=== PATIENT | female | born 1975 | race Two or more races ===

== ENCOUNTER 2020-04-21 12:30 | Inpatient (IN) | payer OTHER ==
[2020-04-21] MEDS ORDERED: SODIUM CHLORIDE 0.9% 1000 ML INFUS.BAG IV ONE (13:14)
[2020-04-21 13:22] LABS: HCG,QUALITATIVE URINE Negative
[2020-04-21 13:30] LABS: EPITHELIAL CELLS MODERATE /hpf
[2020-04-21] MEDS ORDERED: SODIUM CHLORIDE 1,000 ML IV SCH (14:00)
[2020-04-21 14:03] LABS: ACTIVATED PTT 26.8 SECONDS (25.2-36.5); BASO % 0.7 % (0-2.0); EOS % 0.2 % (0-4.5); HEMOGLOBIN 14.2 GM/dl (10.7-15.3); LYMPH % 22.8 % (8-40); MCH 32.4 pg (25.7-33.7); MCHC 33.9 g/dl (32.0-36.0); MEAN CELL VOLUME 95.7 fl (80-96); MEAN PLT VOLUME 8.7 fl (7.5-11.1); MONO % 4.3 % (3.8-10.2); PLATELET COUNT 282 K/MM3 (134-434); RBC 4.39 M/mm3 (3.60-5.2); RDW 12.1 % (11.6-15.6); WHITE BLOOD COUNT 6.8 K/mm3 (4.0-10.8)
[2020-04-21 14:07] LABS: INR 1.2 (0.82-1.09); PROTHROMBIN TIME (PATIENT) 13.3 SEC (10.2-13.0)
[2020-04-21 14:08] LABS: ALBUMIN 4.3 g/dl (3.4-5.0); BILIRUBIN,TOTAL 0.7 mg/dl (0.2-1); CALCIUM 8.9 mg/dl (8.5-10); CREATININE 0.5 mg/dl (0.55-1.3); MAGNESIUM 1.8 mg/dL (1.8-2.4); POTASSIUM 3.8 mmol/L (3.5-5.1); TOT PROT 6.6 g/dl (6.4-8.2)
[2020-04-21 18:31] VITALS: BMI 20.1
[2020-04-21] MEDS ORDERED: cefTRIAXone SODIUM 1 GM VIAL ONE (18:40)
[2020-04-21] MEDS ORDERED: DEXTROSE 5%-WATER - 50 ML IVPB ONE (18:40)
[2020-04-21] MEDS: CEFTRIAXONE 1 GM in DEXTROSE 5%-WATER - 50 ML IVPB SCH (18:48)
[2020-04-21] MEDS: HEPARIN NA (PORCINE) 5,000 UNITS/ML 1ML VIAL SQ SCH (21:27)
[2020-04-22] MEDS ORDERED: ALPRAZolam 0.25 MG TABLET PO PRN (09:19)
[2020-04-22] MEDS ORDERED: MECLIZINE HCL 12.5 MG TABLET PO PRN (09:19)
[2020-04-22 09:55] LABS: BASO % 3.7 % (0-2.0); EOS % 2.2 % (0-4.5); HEMATOCRIT 37.1 % (32.4-45.2); HEMOGLOBIN 12.2 GM/dl (10.7-15.3); LYMPH % 42.4 % (8-40); MCH 31.8 pg (25.7-33.7); MCHC 32.8 g/dl (32.0-36.0); MEAN CELL VOLUME 96.8 fl (80-96); MEAN PLT VOLUME 9.2 fl (7.5-11.1); MONO % 7.8 % (3.8-10.2); NEUT % 43.9 % (42.8-82.8); PLATELET COUNT 227 K/MM3 (134-434); RBC 3.84 M/mm3 (3.60-5.2); RDW 11.9 % (11.6-15.6); WHITE BLOOD COUNT 4.9 K/mm3 (4.0-10.8)
[2020-04-22 10:10] LABS: ALBUMIN 3.4 g/dl (3.4-5.0); BILIRUBIN,TOTAL 0.4 mg/dl (0.2-1); CALCIUM 8.5 mg/dl (8.5-10); CREATININE 0.5 mg/dl (0.55-1.3); MAGNESIUM 1.8 mg/dL (1.8-2.4); POTASSIUM 4.7 mmol/L (3.5-5.1); TOT PROT 5.8 g/dl (6.4-8.2)
[2020-04-22] MEDS ORDERED: cefTRIAXone SODIUM 1 GM VIAL ONE (10:49)
[2020-04-22] MEDS ORDERED: DEXTROSE 5%-WATER - 50 ML IVPB ONE (10:50)
[2020-04-22] MEDS: HEPARIN NA (PORCINE) 5,000 UNITS/ML 1ML VIAL SQ SCH ×2 (11:00→21:47)
[2020-04-22] MEDS: CEFTRIAXONE 1 GM in DEXTROSE 5%-WATER - 50 ML IVPB SCH (11:00)
[2020-04-22] MEDS: amLODIPine BESYLATE 5 MG TABLET (FP) PO SCH (11:00)
[2020-04-23] MEDS ORDERED: ALPRAZolam 0.25 MG TABLET PO PRN (02:08)
[2020-04-23] MEDS ORDERED: cefTRIAXone SODIUM 1 GM VIAL ONE (12:26)
[2020-04-23] MEDS ORDERED: DEXTROSE 5%-WATER - 50 ML IVPB ONE (12:27)
[2020-04-23] MEDS: HEPARIN NA (PORCINE) 5,000 UNITS/ML 1ML VIAL SQ SCH (12:31)
[2020-04-23] MEDS: amLODIPine BESYLATE 5 MG TABLET (FP) PO SCH (12:31)
[2020-04-23] MEDS: CEFTRIAXONE 1 GM in DEXTROSE 5%-WATER - 50 ML IVPB SCH (12:31)
[2020-04-23 14:00] VITALS: BP 118/76; PULSE 69; TEMP 98.1
== END 2020-04-23 14:44 | disposition home or self-care (01) | DRG 204 ==
LOC: FER 12:30 → FM/S 13:14
PROVIDERS: ADMIT Internal Medicine; ATTEND Nurse Practitioner Acute Care
DX: R55 Syncope and collapse (principal); I10 Essential (primary) hypertension; N39.0 Urinary tract infection, site not specified
CPT/HCPCS: 36415; 70551-TC; 71045-TC-FY; 80053; 81003; 81015; 82550; 83735; 84443; 84484; 84703; 85025; 85610; 85730; 86850; 86900; 86901; 87086; 93005; 99285-25; C9803; J1644; U0003

== ENCOUNTER 2023-03-08 10:59 | Inpatient (IN) | payer BC, OTHER ==
[2023-03-08] MEDS ORDERED: GLUCAGON 1 MG KIT ONE (11:18)
[2023-03-08] MEDS ORDERED: GlUCAGON HUMAN RECOMBINANT 1 MG/VIAL IVPUSH ONE (11:20)
[2023-03-08 11:50] LABS: VENOUS O2 SATURATION 95.5 % (70-80); VENOUS PCO2 35.5 mmHg (38-52); VENOUS PH 7.395 (7.310-7.410)
[2023-03-08 11:54] LABS: EOS % 1.2 % (0-4.5); HEMATOCRIT 36.6 % (32.4-45.2); HEMOGLOBIN 12.5 GM/dL (10.7-15.3); LYMPH % 39.2 % (8-40); MCH 32.3 pg (25.7-33.7); MCHC 34.2 g/dl (32.0-36.0); MEAN CELL VOLUME 94.6 fl (80-96); MEAN PLT VOLUME 9.1 fl (7.5-11.1); MONO % 8.5 % (3.8-10.2); NEUT % 50.1 % (42.8-82.8); PLATELET COUNT 267 10^3/uL (134-434); RBC 3.88 M/mm3 (3.60-5.2); RDW 12.5 % (11.6-15.6); WHITE BLOOD COUNT 4.6 K/mm3 (4.0-10.0)
[2023-03-08 12:02] LABS: INR 1.05 (0.83-1.09); PROTHROMBIN TIME (PATIENT) 12.2 SEC (9.7-13.0)
[2023-03-08 12:04] LABS: CHLORIDE 108 mmol/L (98-107); POTASSIUM 4.4 mmol/L (3.5-5.1); SODIUM 138 mmol/L (136-145)
[2023-03-08 12:06] LABS: CALCIUM 8.4 mg/dL (8.5-10.1)
[2023-03-08 12:07] LABS: ALBUMIN 3.2 g/dl (3.4-5.0); ANION GAP 7 mmol/L (4-13); BLOOD UREA NITROGEN 17.9 mg/dL (7-18); CO2 23 mmol/L (21-32); GLUCOSE,RANDOM 139 mg/dL (74-106); LIPASE 88 U/L (73-393)
[2023-03-08 12:09] LABS: SGPT/ALT 17 U/L (13-61)
[2023-03-08 12:10] LABS: CREATININE 0.7 mg/dL (0.55-1.3); PHOSPHOROUS 3.1 mg/dL (2.5-4.9); SGOT/AST 13 U/L (15-37)
[2023-03-08 12:11] LABS: BILIRUBIN,TOTAL 0.3 mg/dL (0.2-1); TOT PROT 6.3 g/dl (6.4-8.2)
[2023-03-08 12:12] LABS: ALK PHOS 54 U/L (45-117)
[2023-03-08] MEDS ORDERED: CALCIUM GLUC IN NACL, ISO-OSM 1 GM/50 ML BAG IVPB ONE ×2 (12:32→12:44)
[2023-03-08] MEDS ORDERED: SODIUM CHLORIDE 0.9% 500 ML INFUS.BAG IV ONE (12:44)
[2023-03-08] MEDS ORDERED: LACTATED RINGERS SOLUTION 1,000 ML/1,000 ML INFUS.BAG IV SCH ×2 (12:45→15:00)
[2023-03-08 13:09] LABS: EPI CELLS 31 /uL (0-25.1); HYALINE CASTS 0 /uL (0-3.1); URINE APPEARANCE CLEAR; URINE BACTERIA 171 /uL (0-1359); URINE BILIRUBIN NEGATIVE (NEGATIVE); URINE COLOR YELLOW; URINE GLUCOSE (UA) NEGATIVE (NEGATIVE); URINE KETONE NEGATIVE (NEGATIVE); URINE LEUK ESTERASE NEGATIVE (NEGATIVE); URINE NITRITE NEGATIVE (NEGATIVE); URINE PROTEIN TRACE (NEGATIVE); URINE RBC 245 /uL (0-23.9); URINE UROBILINOGEN 0.2 mg/dL (0.2-1.0); URINE WBC 23 /uL (0-25.8)
[2023-03-08 13:15] LABS: URINE BARBITURATES NEGATIVE (NEGATIVE)
[2023-03-08 13:16] LABS: COCAINE, UR NEGATIVE (NEGATIVE); METHADONE, UR NEGATIVE (NEGATIVE); OPIATES, URI POSITIVE (NEGATIVE); PHENCYCLIDINE,URINE NEGATIVE (NEGATIVE); URINE AMPHETAMINES NEGATIVE (NEGATIVE); URINE BENZODIAZEPINES NEGATIVE (NEGATIVE)
[2023-03-08] MEDS ORDERED: NALOXONE HCL 0.4 MG/ML VIAL IVPUSH ONE (13:46)
[2023-03-08] MEDS ORDERED: NALOXONE HCL 0.4 MG/ML VIAL ONE (13:46)
[2023-03-08 14:38] LABS: EPI CELLS 5 /uL (0-25.1); HYALINE CASTS 0 /uL (0-3.1); PH,URINE 5.5 (5.0-8.0); URINE APPEARANCE CLEAR; URINE BACTERIA 44 /uL (0-1359); URINE BILIRUBIN NEGATIVE (NEGATIVE); URINE COLOR YELLOW; URINE GLUCOSE (UA) NEGATIVE (NEGATIVE); URINE KETONE NEGATIVE (NEGATIVE); URINE LEUK ESTERASE NEGATIVE (NEGATIVE); URINE NITRITE NEGATIVE (NEGATIVE); URINE PROTEIN NEGATIVE (NEGATIVE); URINE RBC 4 /uL (0-23.9); URINE UROBILINOGEN 0.2 mg/dL (0.2-1.0); URINE WBC 3 /uL (0-25.8)
[2023-03-08 14:41] LABS: COCAINE, UR NEGATIVE (NEGATIVE); METHADONE, UR NEGATIVE (NEGATIVE); OPIATES, URI NEGATIVE (NEGATIVE); PHENCYCLIDINE,URINE NEGATIVE (NEGATIVE); URINE AMPHETAMINES NEGATIVE (NEGATIVE); URINE BARBITURATES NEGATIVE (NEGATIVE); URINE BENZODIAZEPINES NEGATIVE (NEGATIVE)
[2023-03-08] MEDS ORDERED: ACETAMINOPHEN 325 MG TABLET (FP) PO PRN (14:47)
[2023-03-08] MEDS ORDERED: CEFTRIAXONE 1 GM in DEXTROSE 5%-WATER - 50 ML IVPB SCH (16:00)
[2023-03-08] MEDS ORDERED: CEFTRIAXONE 1 GM in DEXTROSE 5%-WATER - 50 ML IVPB ONE (16:00)
[2023-03-08 18:04] VITALS: BMI 21.9
[2023-03-08 19:55] LABS: LACTIC ACID 2.3 mmol/L (0.4-2.0)
[2023-03-08] MEDS ORDERED: CHLORHEXIDINE GLUCONATE 4% CLEANSER FOR DECOLONIZATION TP SCH (22:00)
[2023-03-08] MEDS ORDERED: MUPIROCIN 2% TOPICAL OINTMENT FOR DECOLONIZATION NS SCH (22:00)
[2023-03-08] MEDS: FAMOTIDINE 20 MG TABLET PO SCH (23:02)
[2023-03-09] MEDS ORDERED: LACTATED RINGERS SOLUTION 1,000 ML/1,000 ML INFUS.BAG IV STA (03:13)
[2023-03-09 07:02] LABS: BASO % 0.9 % (0-2.0); EOS % 2.2 % (0-4.5); HEMATOCRIT 29.1 % (32.4-45.2); HEMOGLOBIN 10.1 GM/dL (10.7-15.3); LYMPH % 32.7 % (8-40); MCH 32.9 pg (25.7-33.7); MCHC 34.5 g/dl (32.0-36.0); MEAN CELL VOLUME 95.4 fl (80-96); MEAN PLT VOLUME 9.2 fl (7.5-11.1); NEUT % 57.2 % (42.8-82.8); PLATELET COUNT 190 10^3/uL (134-434); RBC 3.05 M/mm3 (3.60-5.2); RDW 12.6 % (11.6-15.6); WHITE BLOOD COUNT 5.6 K/mm3 (4.0-10.0)
[2023-03-09 08:08] LABS: POTASSIUM 3.9 mmol/L (3.5-5.1); SODIUM 141 mmol/L (136-145)
[2023-03-09 08:10] LABS: CALCIUM 7.7 mg/dL (8.5-10.1)
[2023-03-09 08:11] LABS: BLOOD UREA NITROGEN 9.1 mg/dL (7-18); CO2 22 mmol/L (21-32); GLUCOSE,RANDOM 120 mg/dL (74-106); MAGNESIUM 1.7 mg/dL (1.8-2.4)
[2023-03-09 08:14] LABS: CREATININE 0.5 mg/dL (0.55-1.3); PHOSPHOROUS 3.2 mg/dL (2.5-4.9); SGOT/AST 16 U/L (15-37); SGPT/ALT 19 U/L (13-61)
[2023-03-09 08:15] LABS: BILIRUBIN,TOTAL < 0.1 mg/dL (0.2-1); TOT PROT 4.5 g/dl (6.4-8.2)
[2023-03-09 08:16] LABS: ALK PHOS 72 U/L (45-117)
[2023-03-09 08:30] LABS: ALBUMIN 2.4 g/dl (3.4-5.0); ANION GAP 5 mmol/L (4-13); CHLORIDE 113 mmol/L (98-107)
[2023-03-09] MEDS ORDERED: MAGNESIUM SULFATE IN WATER 2 GM/50 ML IVPB IVPB ONE (08:42)
[2023-03-09] MEDS: FAMOTIDINE 20 MG TABLET PO SCH (09:58)
[2023-03-09] MEDS ORDERED: ENOXAPARIN NA (PORCINE) 40 MG/0.4 ML DISP.SYRIN SQ SCH (10:00)
[2023-03-09 18:37] VITALS: BP 122/80; PULSE 81; RESP 18; TEMP 97.9
== END 2023-03-09 21:02 | disposition home or self-care (01) | DRG 315 ==
LOC: JER 10:59 → JERBED 14:41 → JICU 15:17
PROVIDERS: ADMIT Internal Medicine; ATTEND Internal Medicine
DX: I95.9 Hypotension, unspecified (principal); N39.0 Urinary tract infection, site not specified; I10 Essential (primary) hypertension; B95.4 Other streptococcus as the cause of diseases classified elsewhere; D64.9 Anemia, unspecified
CPT/HCPCS: 0241U-QW; 36415; 71045-TC-FY; 80053; 80307; 81003; 82803; 83605; 83690; 83735; 84100; 84439; 84443; 84484; 84703; 85025; 85379; 85610; 85730; 86850; 86900; 86901; 87040; 87086; 93005; 93010; 99291